=== PATIENT | male | born 1960 | race Caucasian/White ===

== ENCOUNTER 2017-03-29 04:05 | Emergency (ER) | payer OTHER ==
[~2017-03-29] VITALS: Ht 175.3 cm; Wt 68.0 kg
[~2017-03-29 04:05] MED LIST: AMOXICILLIN 50500 M1 PO; ASACOL400 MG PO; CIPROFLOXACIN500 M3 PO; COMBIVENT INH; DUONEB 2.5-0.5 M3 ML INH; FLAGYL PO; HYDROCODON-ACE1 EAC7 PO; HYDROCODON-ACE1 EACH PO; HYDROCODONE-AP1 EA10 PO; LEVAQUIN 500 M500 M2 PO; MEDROL DOSPAK21 TA1; MEDROLDOSEPACK PO; MOBIC7.5 MG PO; PENTASA500 MG PO; PREDNISONE 20 M20 M1 PO; PREDNISONE PO; SYMBICORT160 MCG/4. INH
[2017-03-29] MEDS ORDERED: HYDROCODONE-AP1 EAC6 PO (04:36)
[2017-03-29 04:37] LABS: ABSOLUTE NEUTROPHILS 7.3 thou/uL (1.4-8.2); BASOPHILS 0.4 % (0.0-2.0); EOSINOPHILS 2.1 % (0.0-3.0); HEMATOCRIT 36.7 % (42.0-52.0); HEMOGLOBIN 12.2 gm/dL (14.0-18.0); LYMPHOCYTES 15.4 % (24.0-44.0); MCH 27.6 pg (26.0-34.0); MCHC 33.2 g/dL (28.0-37.0); MCV 83.2 fL (80.0-100.0); MONOCYTES 5.7 % (1.0-8.0); PLATELET COUNT 308 thou/uL (150-400); POLYS 76.4 % (36.0-66.0); RBC 4.41 mil/uL (4.50-6.00); RDW 14.9 % (10.5-14.5); WBC 9.5 thou/uL (4.0-11.0)
[2017-03-29 04:41] LABS: MANUAL DIFF NO
[2017-03-29 04:51] LABS: CREATININE 1.2 mg/dL (0.7-1.3); POTASSIUM 3.2 mmol/L (3.5-5.1)
[2017-03-29 04:57] LABS: ALBUMIN 2.5 g/dL (3.4-5.0); SALICYLATE 3.3 mg/dL (2.8-20.0); TOTAL BILIRUBIN 0.3 mg/dL (<0.1-1.0); TOTAL PROTEIN 6.3 g/dL (6.4-8.2)
[2017-03-29 06:17] LABS: AMP/METHAMP Negative (Negative); BARBITURATES Negative (Negative); BENZODIAZEPINES Negative (Negative); COCAINE Negative (Negative); METHADONE Negative (Negative); OPIATES POSITIVE (Negative); PCP Negative (Negative); THC POSITIVE (Negative); URINE BILIRUBIN NEGATIVE (Negative); URINE BLOOD NEGATIVE (Negative); URINE COLOR YELLOW; URINE GLUCOSE-RANDOM* NEGATIVE (Negative); URINE KETONES NEGATIVE (Negative); URINE LEUKOCYTES-REFLEX NEGATIVE (Negative); URINE PROTEIN (DIPSTICK) NEGATIVE (Negative); URINE UROBILINOGEN 0.2 E.U./dl (0.2-1.0)
[2017-03-29 12:45] VITALS: BP 112/78
== END 2017-03-29 12:54 ==
LOC: ER 04:05
PROVIDERS: Emergency Medicine
DX: S66.822A Laceration of other specified muscles, fascia and tendons at wrist and hand level, left hand, initial encounter (principal); S11.91XA Laceration without foreign body of unspecified part of neck, initial encounter; S51.812A Laceration without foreign body of left forearm, initial encounter; K50.90 Crohn's disease, unspecified, without complications; J44.9 Chronic obstructive pulmonary disease, unspecified; Z90.89 Acquired absence of other organs; X78.8XXA Intentional self-harm by other sharp object, initial encounter; Y93.89 Activity, other specified; Y92.89 Other specified places as the place of occurrence of the external cause; Y99.9 Unspecified external cause status